=== PATIENT | male | born 1965 | race African-American/Black ===

== ENCOUNTER 2018-11-07 17:49 | Inpatient (IN) ==
[2018-11-07 18:36] LABS: Basophils % 0.4 % (0.0-0.8); Eosinophils # 0.1 10*3/uL (0.0-0.87); Eosinophils % 1.2 % (0.00-10.9); Hematocrit 42.2 VOL% (42.0-52.0); Hemoglobin 13.8 GM/DL (14.0-18.0); Immature Granulocytes % 0.6 %; Immature Granulocytes Absolute 0.07 #; Lymphocytes # 1.8 10*3/uL (1.4-4.0); Lymphocytes % 15.8 % (21.2-54.2); Mean Corpuscular HGB Conc 32.7 GM/DL (32-36); Mean Corpuscular Volume 77.3 FL (87-102); Mean Platelet Volume 10.1 FL (9.6-12.0); Monocytes % 11.7 % (1.7-12.7); Neutrophils % 70.3 % (38.7-73.9); Platelet Count 200 T/CUMM (130-400); Red Blood Count 5.46 MC/CUMM (3.8-5.5); Red Cell Distribution Width 16.1 % (9.3-17.3); White Blood Count 11.1 T/CUMM (4-12)
[2018-11-07 18:46] LABS: INR 2.1
[2018-11-07 18:47] LABS: PT Patient Result 22.7 SECS
[2018-11-07 18:59] LABS: Albumin 2.8 G/DL (3.4-5.0); Calcium 9.3 MG/DL (8.5-10.1); Osmolality,Calculated 264.2 MOS/KG (273-304); Total Protein 7.5 G/DL (6.4-8.3)
[2018-11-07 19:03] LABS: Bilirubin,Total 12.5 MG/DL (0.2-1.0)
[2018-11-07 20:54] LABS: Barbiturates Screen,Urine Negative (Negative); Benzodiazepines Screen,Urine Negative (Negative); Cannabinoid Screen,Urine Negative (Negative); Opiate Screen,Urine Positive (Negative); Phencyclidine Screen,Urine Negative (Negative)
[2018-11-07 20:56] LABS: Apearance,Urine CLEAR (Clear); Bacteria,Urine Many /HPF (Few); Blood, Urine Small mg/dL (Negative); Glucose,Urine (UA) Negative (Negative); Hyaline Casts,Urine 3 /LPF (0-3); Ketones,Urine Negative (Negative); Mucus,Urine Few /LPF (Occasional); Nitrite,Urine Negative (Negative); Protein,Urine 30 MG/DL; RBC,Urine <1 /HPF (0-4); Squamous Epithelial Cell,Urine Occasional /HPF (0-10); Urine Color Amber (Yellow); Urine Specific Gravity 1.017 (1.001-1.035); WBC,Urine 12 /HPF (0-6)
[2018-11-07 20:58] LABS: Bilirubin,Urine Moderate mg/dL (Negative)
[2018-11-07] MEDS ORDERED: ALBUTEROL/IPRATROPIUM 3 ML NEB RESP TX STA (21:39)
[2018-11-08] MEDS ORDERED: MORPHINE 4 MG/1 ML VIAL IV STA (00:37)
[2018-11-08] MEDS ORDERED: ONDANSETRON 4 MG/2 ML VIAL IV STA (00:38)
[2018-11-08] MEDS ORDERED: GLUCAGON 1 MG VIAL IM PRN (02:31)
[2018-11-08] MEDS ORDERED: ONDANSETRON 4 MG/2 ML VIAL IV PRN (02:31)
[2018-11-08] MEDS ORDERED: DEXTROSE 50% 25 GM/50 ML SYRINGE IV PRN (02:31)
[2018-11-08] MEDS ORDERED: ZALEPLON 5 MG CAPSULE PO PRN (02:31)
[2018-11-08] MEDS ORDERED: AZITHROMYCIN INJ 500 MG in SODIUM CHLORIDE 0.9% 250 ML IV SCH (04:00)
[2018-11-08] MEDS: cefTRIAXone 1,000 MG in SYRINGE 1 EACH IV SCH (04:44)
[2018-11-08] MEDS: HYDROmorphone 2 MG/1 ML VIAL IV PRN ×3 (06:03→20:10)
[2018-11-08 07:13] LABS: Basophils % 0.2 % (0.0-0.8); Eosinophils # 0.1 10*3/uL (0.0-0.87); Eosinophils % 1.4 % (0.00-10.9); Hematocrit 37.8 VOL% (42.0-52.0); Hemoglobin 12.4 GM/DL (14.0-18.0); Immature Granulocytes % 0.9 %; Immature Granulocytes Absolute 0.09 #; Lymphocytes # 1.2 10*3/uL (1.4-4.0); Lymphocytes % 11.8 % (21.2-54.2); Mean Corpuscular HGB Conc 32.8 GM/DL (32-36); Mean Corpuscular Volume 76.8 FL (87-102); Monocytes % 13.9 % (1.7-12.7); Neutrophils % 71.8 % (38.7-73.9); Platelet Count 194 T/CUMM (130-400); Red Blood Count 4.92 MC/CUMM (3.8-5.5); White Blood Count 10.1 T/CUMM (4-12)
[2018-11-08 07:40] LABS: Albumin 2.4 G/DL (3.4-5.0); Calcium 8.9 MG/DL (8.5-10.1); Total Protein 6.6 G/DL (6.4-8.3)
[2018-11-08 07:41] LABS: Bilirubin,Total 12.1 MG/DL (0.2-1.0)
[2018-11-08] MEDS: INSULIN LISPRO 100 UNIT/ML SUBCUT SCH ×4 (07:56→20:10)
[2018-11-08] MEDS: predniSONE 20 MG TABLET PO SCH (09:01)
[2018-11-08] MEDS ORDERED: PHYTONADIONE 5 MG/5 ML ORAL.SYR PO ONE (09:05)
[2018-11-08] MEDS: POLYETHYLENE GLYCOL POWDER 17 GM PACK PO SCH (17:03)
[2018-11-08] MEDS: ALBUTEROL/IPRATROPIUM 3 ML NEB RESP TX PRN (17:35)
[2018-11-09] MEDS ORDERED: amLODIPine 5 MG TABLET PO SCH (01:30)
[2018-11-09] MEDS: cefTRIAXone 1,000 MG in SYRINGE 1 EACH IV SCH (03:54)
[2018-11-09 05:19] LABS: Basophils % 0.2 % (0.0-0.8); Eosinophils % 0.2 % (0.00-10.9); Hematocrit 38.3 VOL% (42.0-52.0); Hemoglobin 12.8 GM/DL (14.0-18.0); Immature Granulocytes % 0.8 %; Lymphocytes # 1.3 10*3/uL (1.4-4.0); Lymphocytes % 10.9 % (21.2-54.2); Mean Corpuscular HGB Conc 33.4 GM/DL (32-36); Mean Corpuscular Volume 77.5 FL (87-102); Mean Platelet Volume 10.5 FL (9.6-12.0); Monocytes % 13.2 % (1.7-12.7); Neutrophils % 74.7 % (38.7-73.9); Platelet Count 200 T/CUMM (130-400); Red Blood Count 4.94 MC/CUMM (3.8-5.5); Red Cell Distribution Width 16.7 % (9.3-17.3); White Blood Count 12.2 T/CUMM (4-12)
[2018-11-09 05:33] LABS: Albumin 2.6 G/DL (3.4-5.0); Calcium 9.3 MG/DL (8.5-10.1); Osmolality,Calculated 273.1 MOS/KG (273-304); Total Protein 7.3 G/DL (6.4-8.3)
[2018-11-09 05:34] LABS: Partial Thromboplastin Time 25.1 SECS (0-40)
[2018-11-09 05:40] LABS: Bilirubin,Total 12.6 MG/DL (0.2-1.0)
[2018-11-09 05:57] LABS: PT Patient Result 21.3 SECS
[2018-11-09 06:14] LABS: Cancer Antigen 19-9 44.4 U/ML (0-37); Carcinoembryonic Antigen 25.2 NG/ML (0.0-5.0)
[2018-11-09] MEDS: INSULIN LISPRO 100 UNIT/ML SUBCUT SCH ×4 (07:49→23:05)
[2018-11-09] MEDS ORDERED: PHYTONADIONE 10 MG/1 ML AMP SUBCUT ONE (08:14)
[2018-11-09] MEDS: HYDROmorphone 2 MG/1 ML VIAL IV PRN ×4 (08:31→20:39)
[2018-11-09] MEDS ORDERED: SODIUM CHLORIDE 0.9% 1,000 ML IV ONE (09:57)
[2018-11-09] MEDS ORDERED: DIAZEPAM 5 MG TABLET PO ONE (10:04)
[2018-11-09] MEDS: LISINOPRIL 10 MG TABLET PO SCH ×2 (12:20→20:39)
[2018-11-09] MEDS: predniSONE 20 MG TABLET PO SCH (12:20)
[2018-11-09] MEDS: amLODIPine 10 MG TABLET PO SCH ×2 (12:20→12:39)
[2018-11-09] MEDS ORDERED: INDOMETHACIN SUPP 50 MG SUPP RECTAL ONE (12:27)
[2018-11-09] MEDS: POLYETHYLENE GLYCOL POWDER 17 GM PACK PO SCH (12:57)
[2018-11-09] MEDS ORDERED: SODIUM CHLORIDE 0.9% 500 ML IV ONE (14:04)
[2018-11-09] MEDS: LACTATED RINGERS 1,000 ML IV SCH (14:06)
[2018-11-09] MEDS ORDERED: AZITHROMYCIN 250 MG TABLET PO ONE (17:22)
[2018-11-09] MEDS: CARVEDILOL 25 MG TABLET PO SCH (17:26)
[2018-11-09] MEDS ORDERED: diphenhydrAMINE CAP 25 MG CAPSULE PO PRN (18:32)
[2018-11-10] MEDS: cefTRIAXone 1,000 MG in SYRINGE 1 EACH IV SCH (03:57)
[2018-11-10] MEDS: HYDROmorphone 2 MG/1 ML VIAL IV PRN ×3 (04:10→19:18)
[2018-11-10 05:03] LABS: Basophils % 0.1 % (0.0-0.8); Eosinophils % 0.1 % (0.00-10.9); Hematocrit 36.9 VOL% (42.0-52.0); Immature Granulocytes % 0.6 %; Immature Granulocytes Absolute 0.07 #; Lymphocytes % 9.5 % (21.2-54.2); Mean Corpuscular HGB Conc 32.5 GM/DL (32-36); Mean Corpuscular Volume 77.4 FL (87-102); Mean Platelet Volume 10.4 FL (9.6-12.0); Monocytes % 10.5 % (1.7-12.7); Neutrophils % 79.2 % (38.7-73.9); Platelet Count 195 T/CUMM (130-400); Red Blood Count 4.77 MC/CUMM (3.8-5.5)
[2018-11-10 05:13] LABS: INR 1.3; PT Patient Result 14.1 SECS
[2018-11-10 05:51] LABS: Albumin 2.5 G/DL (3.4-5.0); Osmolality,Calculated 273.2 MOS/KG (273-304); Total Protein 7.1 G/DL (6.4-8.3)
[2018-11-10 06:00] LABS: Bilirubin,Total 13.1 MG/DL (0.2-1.0); Calcium 5.3 MG/DL (8.5-10.1)
[2018-11-10] MEDS: INSULIN LISPRO 100 UNIT/ML SUBCUT SCH ×4 (07:50→20:33)
[2018-11-10] MEDS: predniSONE 20 MG TABLET PO SCH (08:17)
[2018-11-10] MEDS: amLODIPine 10 MG TABLET PO SCH ×2 (08:17→08:18)
[2018-11-10] MEDS: POLYETHYLENE GLYCOL POWDER 17 GM PACK PO SCH (08:17)
[2018-11-10] MEDS: LISINOPRIL 10 MG TABLET PO SCH ×2 (08:18→20:35)
[2018-11-10] MEDS: CARVEDILOL 25 MG TABLET PO SCH ×2 (08:25→17:35)
[2018-11-10] MEDS ORDERED: INDOMETHACIN SUPP 50 MG SUPP RECTAL ONE (08:26)
[2018-11-10] MEDS ORDERED: CALCIUM GLUCONATE 2,000 MG in SODIUM CHLORIDE 0.9% 100 ML IV ONE (08:37)
[2018-11-10] MEDS ORDERED: ceFAZolin 1,000 MG in SYRINGE 1 EACH IV ONE (08:38)
[2018-11-10] MEDS ORDERED: ceFAZolin 1,000 MG VIAL IRRIG ONE (08:47)
[2018-11-10] MEDS ORDERED: PROPOFOL 200 MG/20 ML VIAL IV ONE (09:00)
[2018-11-10] MEDS ORDERED: AZITHROMYCIN 250 MG TABLET PO SCH ×2 (09:00)
[2018-11-10] MEDS ORDERED: LIDOCAINE 2% 5 ML VIAL ONE (09:00)
[2018-11-10] MEDS ORDERED: DIAZEPAM 5 MG TABLET ONE (09:47)
[2018-11-10] MEDS: LACTATED RINGERS 1,000 ML IV SCH (09:51)
[2018-11-10] MEDS ORDERED: fentaNYL 100 MCG/2 ML VIAL ONE (09:57)
[2018-11-10] MEDS ORDERED: MIDAZOLAM 2 MG/2 ML VIAL ONE (09:57)
[2018-11-10] MEDS ORDERED: MIDAZOLAM 2 MG/2 ML VIAL IV ONE (12:00)
[2018-11-10] MEDS ORDERED: fentaNYL 100 MCG/2 ML VIAL IV ONE (12:00)
[2018-11-10] MEDS ORDERED: LIDOCAINE 2%/EPI 20 ML VIAL ONE (12:55)
[2018-11-10] MEDS ORDERED: HEPARIN/NACL 0.9% 2 UNITS/ML 1,000 ML IV ONE (12:55)
[2018-11-10] MEDS ORDERED: HEPARIN LOCK FLUSH 500 UNIT/5 ML SYRINGE IV ONE (13:47)
[2018-11-10] MEDS ORDERED: HYDROmorphone 2 MG/1 ML VIAL ONE (13:50)
[2018-11-10] MEDS ORDERED: TISSUE ADHESIVE 1 EACH APPLICATOR TOP ONE (14:10)
[2018-11-10] MEDS: ALBUTEROL/IPRATROPIUM 3 ML NEB RESP TX PRN (21:46)
[2018-11-11] MEDS: HYDROmorphone 2 MG/1 ML VIAL IV PRN (03:11)
[2018-11-11] MEDS: cefTRIAXone 1,000 MG in SYRINGE 1 EACH IV SCH (03:14)
[2018-11-11] MEDS ORDERED: FUROSEMIDE 40 MG/4 ML VIAL IV ONE (03:42)
[2018-11-11 04:58] LABS: Calcium 8.8 MG/DL (8.5-10.1)
[2018-11-11 08:13] LABS: Albumin 2.2 G/DL (3.4-5.0); Bilirubin,Direct 6.21 MG/DL (0.0-0.20); Bilirubin,Indirect 1.1 MG/DL (0.0-1.0); Bilirubin,Total 7.3 MG/DL (0.2-1.0); Total Protein 6.4 G/DL (6.4-8.3)
[2018-11-11 08:21] VITALS: BP 99/73
[2018-11-11] MEDS: INSULIN LISPRO 100 UNIT/ML SUBCUT SCH ×2 (09:11→12:57)
[2018-11-11] MEDS: predniSONE 20 MG TABLET PO SCH (09:12)
[2018-11-11] MEDS: POLYETHYLENE GLYCOL POWDER 17 GM PACK PO SCH (09:12)
[2018-11-11] MEDS ORDERED: VASOPRESSIN 20 UNITS/ML VIAL ONE (10:09)
[2018-11-11] MEDS: CARVEDILOL 25 MG TABLET PO SCH (12:56)
[2018-11-11] MEDS: LACTATED RINGERS 1,000 ML IV SCH (12:56)
[2018-11-11] MEDS: amLODIPine 10 MG TABLET PO SCH ×2 (12:57)
[2018-11-11] MEDS: LISINOPRIL 10 MG TABLET PO SCH (12:57)
== END 2018-11-11 13:27 | disposition expired | DRG 981 ==
LOC: N.ED 17:49 → N.EDINP 17:49 → N.4E 11-08 02:04
PROVIDERS: ADMIT Internal Medicine; ATTEND Internal Medicine